=== PATIENT | male | born 1985 ===

== ENCOUNTER 2022-03-13 17:49 | Emergency (ER) | payer OTHER ==
[~2022-03-13] VITALS: Ht 167.6 cm; Wt 140.6 kg
[2022-03-13] MEDS ORDERED: COZAAR25 MG PO (18:05)
[2022-03-13] MEDS ORDERED: ZITHROMAX500 MG PO (21:18)
[2022-03-13] MEDS ORDERED: DOLOGEN 325-11 EACH PO (21:18)
== END 2022-03-13 21:23 | disposition home or self-care (01) ==
LOC: ER 17:49
DX: B34.9 Viral infection, unspecified (principal); Z20.822 Contact with and (suspected) exposure to COVID-19